=== PATIENT | female | born 1975 | race Caucasian/White ===

== ENCOUNTER 2017-12-09 01:21 | Day surgery (SDC) | payer OTHER ==
[~2017-12-09] VITALS: Ht 154.9 cm; Wt 136.1 kg
[~2017-12-09 01:21] MED LIST: LEVO150T78 PO
[2017-12-09] MEDS: NORMOSOL R SOLN(*) 1000 ML BAG 1,000 ML IV PRN ×2 (11:59→13:43)
[2017-12-09 12:14] VITALS: BP 108/65
[2017-12-09] MEDS ORDERED: fentaNYL CITR 100 MCG/2 ML AMP ONE (12:34)
[2017-12-09] MEDS ORDERED: PROPOFOL EMUL(*) 10MG/ML 20 ML 40 ML ONE (12:35)
[2017-12-09] MEDS ORDERED: LIDOCAINE MPF 1% 5 ML VIAL ONE (12:35)
[2017-12-09] MEDS ORDERED: BUPIVACAINE 0.5% INJ 50ML VIAL INFIL ONE (13:20)
[2017-12-09] MEDS ORDERED: LIDOCAINE 1%MDV(*)200 MG/20 ML 1 ML ONE (13:20)
[2017-12-09] MEDS ORDERED: LIDOCAINE/SOD BICARB 8.4% SYR ID ONE (13:25)
[2017-12-09] MEDS ORDERED: MIDAZOLAM 2 MG/2 ML VIAL IVP PRN (13:25)
[2017-12-09] MEDS ORDERED: CELECOXIB 200 MG CAP PO ONE (13:25)
[2017-12-09] MEDS ORDERED: CLINDAMYCIN(*) 600 MG/NS 50 ML 50 ML IVPB ONE (13:35)
[2017-12-09] MEDS ORDERED: ONDANSETRON 4 MG/2 ML VIAL ONE (14:58)
[2017-12-09 15:56] VITALS: BP 107/62
[2017-12-09] MEDS ORDERED: KETOROLAC 30 MG/ML VIAL ONE (16:06)
[2017-12-09 16:15] VITALS: BP 120/78
[2017-12-09] MEDS ORDERED: KET10 PO (16:23)
[2017-12-09] MEDS ORDERED: OXYC5CAP21 PO (16:24)
[2017-12-09 16:30] VITALS: BP 116/77
[2017-12-09 16:45] VITALS: BP 149/83
[2017-12-09 16:47] VITALS: BP 138/85
--- NOTE | 2017-12-10 13:02 | OPERATIVE REPORT 1 ---
EVENT DATE: December 09, 2017 SURGEON: Evens Landry MD ANESTHESIOLOGIST: Gilmar Wakefield M.D. ANESTHESIA: MAC with local. SELECTOR PACKER: Santiago Bar PA-C PREOPERATIVE DIAGNOSIS Right hand carpal tunnel syndrome. POSTOPERATIVE DIAGNOSIS Right hand carpal tunnel syndrome. PROCEDURE Right open carpal tunnel release. IMPLANTS None. SPECIMENS None. COMPLICATIONS None. ESTIMATED BLOOD LOSS Minimal. OPERATION Patient received appropriate preoperative antibiotic, was brought to the OR, where Dr. Wakefield performed MAC anesthesia then a local block was performed under sterile conditions. Right upper extremity prepped and draped in usual sterile fashion, limb exsanguinated, tourniquet inflated to 225 mmHg. Incision was made starting distally at Allison's line, proceeding proximally just ulnar to the palmar crease to the level of the distal wrist crease. Sharp dissection was carried out in the skin, hemostasis achieved by Bovie. We then bluntly dissected down to the palmaris longus, which was split. Appropriate retractors were placed. Proximally we identified the extent of the carpal tunnel and placed a freer elevator under this and dissected distally in a sharp fashion to release it to within a couple millimeters of its distal extent. This was then split with a tenotomy scissors under direct visualization. Proximally we undermined and overmined the antebrachial fascia ulnar to the palmaris longus, and then released this under direct visualization for approximately 2-3 cm with Metzenbaums. Proximally and distally, digital palpation showed a good release. The wound was packed with wettened Ray-tecs. Tourniquet was let down. Hemostasis was easily achieved by pressure and bipolar at the skin margins. We copiously irrigated, closed the wound with 4-0 Ethilon in horizontal mattress fashion. Dressing was applied. Patient as awakened, taken to recovery in stable condition. Ice, elevation, non-weightbearing is recommended. Tylenol, Toradol and OxyIR were recommended for pain relief. Dressings can be changed in two days. Will follow her up in a week in our [facility]. KALE
== END 2017-12-09 17:00 | disposition home or self-care (01) ==
LOC: OR 01:21
PROVIDERS: ATTEND Orthopaedic Surgery
DX: G56.01 Carpal tunnel syndrome, right upper limb (principal)
CPT/HCPCS: 64721; A4565; J1885; J2001; J2250; J2405; J2704; J3010; J3490